=== PATIENT | female | born 1965 | race Caucasian/White ===

== ENCOUNTER 2018-10-10 13:47 | Emergency (ER) | payer BC ==
[~2018-10-10] VITALS: Ht 172.7 cm; Wt 95.3 kg
[2018-10-10 14:00] VITALS: BP_SYST 127
--- NOTE | 2018-10-10 14:00 | NUR ---
Patient to ER bed 2 to gown for evaluation. Side rails up.
--- NOTE | 2018-10-10 14:01 | NUR ---
ER Dr. Cheatham at bedside examining patient.
--- NOTE | 2018-10-10 14:10 | NUR ---
Mauricio yee in ED - 10/10/18 at 1807 by SERJIONERUM MARIA SETHER Morrison at bedside examining patient.
--- NOTE | 2018-10-10 14:10 | NUR ---
Mauricio yee in ED - 10/10/18 at 1809 by KRYSTIN pt arrives with a lac over the right thumb. Pt states that she lacerated her thumb with a blade doing yard work.
--- NOTE | 2018-10-10 14:10 | NUR ---
pt arrives with a lac over the left thumb. Pt was doing yard work when she lacerated her left thumb with a blade.
--- NOTE | 2018-10-10 14:20 | NUR ---
Cleansed pt's left thumb. Pt is unable to move the left thumb at the moment. +2 pulse left radial pulse palpated. Cap refill < 3 sec on the right thumb.
[2018-10-10] MEDS ORDERED: LIDOCAINE 1% 10 MG/ML, 50 ML MDV INJ ONE (14:30)
[2018-10-10] MEDS ORDERED: DIPH-TET-PERTUS Vaccine 0.5 ML VIAL (ADACEL) I.M. ONE (14:30)
[2018-10-10] MEDS ORDERED: LIDOCAINE 1%, 20 ML MDV 20 ML ONE ×2 (14:35→14:40)
[2018-10-10] MEDS ORDERED: LIDOCAINE 2%, 20 ML MDV ONE (14:39)
--- NOTE | 2018-10-10 14:50 | NUR ---
Dr. Deluca at the bedside suturing the pt's left thumb.
[2018-10-10] MEDS ORDERED: ceFAZolin SODIUM 1 GM VIAL IM ONE (15:00)
--- NOTE | 2018-10-10 15:10 | NUR ---
Contacting pt insurance for authorization for a hand surgeon.
[2018-10-10 16:09] VITALS: BP_SYST 124
--- NOTE | 2018-10-10 16:09 | NUR ---
Patient given written and verbal discharge instructions and verbalizes understanding. ER MD discussed with patient the results and treatment provided. Patient in stable condition. ID arm band removed. Rx of Keflex given. Patient educated on pain management and to follow up with PMD. Pain Scale 0. Opportunity for questions provided and answered. Medication side effect fact sheet provided.
== END 2018-10-10 16:09 | disposition home or self-care (01) ==
LOC: SED 13:47
DX: S61.012A Laceration without foreign body of left thumb without damage to nail, initial encounter (principal); R03.0 Elevated blood-pressure reading, without diagnosis of hypertension; W31.2XXA Contact with powered woodworking and forming machines, initial encounter; Y93.89 Activity, other specified; Y92.009 Unspecified place in unspecified non-institutional (private) residence as the place of occurrence of the external cause; Y99.8 Other external cause status
CPT/HCPCS: 12002; 73140; 90471; 90715; 96372; 99283; J0690; J2001 ×2